=== PATIENT | male | born 1965 ===

== ENCOUNTER 2017-03-27 10:51 | Day surgery (SDC) | payer OTHER ==
[2017-03-27 11:25] VITALS: BMI 29.8
[2017-03-27] MEDS ORDERED: Midazolam 2 MG/2 ML VIAL ONE (12:18)
[2017-03-27] MEDS ORDERED: Propofol 10 mg/ml Inj (20 ML) ONE ×2 (12:18→12:19)
[2017-03-27] MEDS ORDERED: Lactated Ringer's 500 ML IV SCH (12:45)
[2017-03-27 13:52] VITALS: O2SAT 100
[2017-03-27 14:07] VITALS: BP 150/99; PULSE 55; RESP 13; TEMP 98
== END 2017-03-27 14:05 | disposition home or self-care (01) ==
LOC: C.ENDO 10:51
PROVIDERS: ATTEND Internal Medicine Gastroenterology
DX: K29.70 Gastritis, unspecified, without bleeding (principal); K59.00 Constipation, unspecified; K44.9 Diaphragmatic hernia without obstruction or gangrene; K64.8 Other hemorrhoids; K57.30 Diverticulosis of large intestine without perforation or abscess without bleeding
CPT/HCPCS: 43239; 45378; 88305; 88342; J2250; J2704; J3010; J7120